=== PATIENT | female | born 1990 | race Caucasian/White ===

== ENCOUNTER 2016-07-08 07:58 | Emergency (ER) | payer OTHER ==
[~2016-07-08 07:58] MED LIST: ACET500C; ACET50TA PO; BACT800T; CEFT500T; DOCU10CA PO; FERR325T; IBUP600T26 PO; IBUP80TA PO; MOTR200T4; NORCOTAB PO; PRENCHW PO; [UNRECOGNIZED DRUG - REMARK]
--- NOTE | 2016-07-08 08:53 | REP ---
Clinical: Trauma. Comparison: Report dated 08/11/2015. Technique: AP, lateral, bilateral oblique and sunrise views of the left knee. Findings: Subchondral heterogeneity and subtle mottled appearance to the femoral condyles as well as subtle increase sclerosis to the tibial plateau suggests chronic changes related to continuous micro trauma. No acute fracture or dislocation. Small effusion cannot be excluded. Impression: Mild chronic-appearing degenerative changes. Possible small effusion. No acute fracture or dislocation. Signed by Lalit Nieto MD 07/08/2016 08:45 A
--- NOTE | 2016-07-08 09:10 | EDDOCDS ---
Physician Documentation [facility] Name: Alma Delia Alejandro Age: 25 yrs Sex: Female : 1990 Arrival Date: 07/08/2016 Time: 07:58 Bed I3 / M3 Private MD: Disposition: 07/08/16 08:55 Discharged to Home/Self Care. Impression: Pain in left knee. - Condition is Stable. - Discharge Instructions: Knee Bracing, Knee Pain. - Prescriptions for Diclofenac Sodium 75 mg Oral Tablet, Delayed Release (E.C.) - take 1 tablet by ORAL route 2 times per day; 30 tablet. Tramadol 50 mg Oral Tablet - take 1 tablet by ORAL route 4 times per day As needed MDD: 4 tabs; 20 tablet. - Medication Reconciliation, Local Pharmacy Hours form. - Follow up: Private Physician; When: Call to arrange an appointment; Reason: Further diagnostic work-up, Recheck today's complaints, Continuance of care. - Problem is an acute exacerbation. - Symptoms are unchanged. Historical: - Allergies: no known allergies; - Home Meds: 1. Viibryd 20 mg oral tab once daily - PMHx: Anxiety; Depression; - PSHx: ; Adenoidectomy; Tonsillectomy; Tubal ligation; knee surgery left X 5; - Social history: Smoking status: Patient uses tobacco products, current some day smoker. No barriers to communication noted, The patient speaks fluent Irish, Speaks appropriately for age. - Family history: Not pertinent. - : The pt / caregiver states he / she is not on anticoagulants. Home medication list is obtained from the patient. - Exposure Risk Screening:: None identified. 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 4 in. (162.56 cm) (R); Pain 7/10; 08:05 Body Mass Index 26.61 (70.31 kg, 162.56 cm) mlb1 MDM: 08:20 Knee, Complete Ordered. EDMS 08:22 Financial registration complete. mm15 08:27 [facility] Payment Agreement was scanned into Moment[employer] and attached to record. mm15 08:55 Knee Immobilizer ordered. btw 08:55 Crutches ordered. btw Signatures: Dispatcher MedHost Juan M Hardwick, RN Rob Ross RN RN mlb1 Dougie Perez PA PA btw Chelsey Mckenzie mm15 The chart was reviewed and I authenticate all verbal orders and agree with the evaluation and treatment provided.Attachments: 08:27 [facility] Payment Agreement mm15 MTDD
--- NOTE | 2016-07-08 09:10 | EDDOCDS ---
Nurse's Notes [facility] Name: Alma Delia Alejandro Age: 25 yrs Sex: Female : 1990 Arrival Date: 07/08/2016 Time: 07:58 Bed I3 / M3 Private MD: Diagnosis: Pain in left knee Presentation: 07/08 08:02 Presenting complaint: Patient states: Twisted left knee walking down steps yesterday. mlb1 Adult Sepsis Screening: The patient does not have new or worsening altered mentation. Patient's respiratory rate is less than 22. Systolic blood pressure is greater than 100. Patient has a qSOFA score of 0- Negative Sepsis Screen. Suicide/Homicide risk assessment- the patient denies having any suicidal and/or homicidal ideations and does not present with any other emotional, behavioral or mental health complaints. Status: Patient is not a electronic sales and service technician or dependent. Transition of care: patient was not received from another setting of care. 08:02 Acuity: KINA Level 4 mlb1 08:02 Method Of Arrival: Walkin/Carried/Asstd mlb1 Triage Assessment: 08:04 General: Appears in no apparent distress, Behavior is appropriate for age, cooperative. mlb1 Pain: Location: medial aspect of left knee Pain currently is 7 out of 10 on a pain scale. HIV screening NA for this visit Offered previously. 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 Viibryd 20 mg oral tab once daily - PMHx: Anxiety; Depression; - PSHx: ; Adenoidectomy; Tonsillectomy; Tubal ligation; knee surgery left X 5; - Social history: Smoking status: Patient uses tobacco products, current some day smoker. No barriers to communication noted, The patient speaks fluent Danish, Speaks appropriately for age. - Family history: Not pertinent. - : The pt / caregiver states he / she is not on anticoagulants. Home medication list is obtained from the patient. - Exposure Risk Screening:: None identified. Screenin:43 Screening information is obtained from the patient. Fall risk: No risks identified. dy Assistance ADL's: requires no assistance with activities of daily living. Abuse/DV Screen: The patient / caregiver reports he/she is: not in a situation that causes fear, pain or injury. Nutritional screening: No deficits noted. Advance Directives: There is no active DNR order. home support is adequate. Assessment: 08:41 General: Appears uncomfortable, Behavior is appropriate for age, cooperative. Pain: dy Location: medial aspect of left knee Pain currently is 7 out of 10 on a pain scale. Neurological: No deficits noted. Respiratory: Airway is patent Respiratory effort is even, unlabored. Derm: Skin is pink, warm & dry. 09:07 General: Appears in no apparent distress, Behavior is appropriate for age, cooperative. dy Pain: Location: medial aspect of left knee Pain currently is 6 out of 10 on a pain scale. Vital Signs: 08:05 BP 134 / 90; Pulse 105; Resp 16; Temp 97.9(TE); Pulse Ox 100% on R/A; Weight 70.31 kg mlb1 (R); Height 5 ft. 4 in. (162.56 cm) (R); Pain 7/10; 08:05 Body Mass Index 26.61 (70.31 kg, 162.56 cm) [facility] Vitals: 08:05 Log In Time: July 08, 2016 at 08:00. mlb1 ED Course: 07:59 Patient visited by Nadir Andersen. jp5 07:59 Patient moved to Waiting jp5 08:02 Patient visited by Rob Stapleton, RN. mlb1 08:02 Triage Initiated mlb1 08:05 Patient visited by Rob Stapleton, RN. mlb1 08:05 Patient moved to I3 / M3 mlb1 08:08 Dougie Perez PA is PSYCHIATRICP. btw 08:08 Massimo Mckinney MD is Attending Physician. btw 08:08 Patient visited by Dougie Perez PA. btw 08:27 [facility] Payment Agreement was scanned into Signal [employer]s and attached to record. mm15 08:43 Patient visited by Juan M Curry RN. dy 08:43 The patient / caregiver is instructed regarding the plan of care and ED course. Patient dy has correct armband on for positive identification. 08:57 Knee, Complete Returned. EDMS 09:05 Patient visited by Ousmane Roland PCA. jlf 09:05 Crutch training done. Knee immobilizer applied on left knee. Patient with positive dy distal sensation and brisk distal capillary refill after application. 09:07 No IV's were initiated during this patient's visit. No procedures done that require dy assistance. CMS intact distal to knee immobilizer. Order Results: Radiology Order: Knee, Complete Test: Knee, Complete REASON FOR EXAMINATION: Trauma; Clinical: Trauma.; ; Comparison: Report dated 08/11/2015.; ; Technique: AP, lateral, bilateral oblique and sunrise views of the left knee.; ; Findings: Subchondral heterogeneity and subtle mottled appearance to the femoral; condyles as well as subtle increase sclerosis to the tibial plateau suggests; chronic changes related to continuous micro trauma. No acute fracture or; dislocation. Small effusion cannot be excluded.; ; Impression:; Mild chronic-appearing degenerative changes.; Possible small effusion.; No acute fracture or dislocation.; ; ; ; Signed by; Lalit Nieto MD 07/08/2016 08:45 A; Outcome: 08:55 Discharge ordered by Provider. btw 09:09 Discharge Assessment: patient administered narcotics - no. The following High Risk dy Discharge criteria are identified: None. Discharged to home ambulatory. Condition: good. Discharge instructions given to patient, Instructed on discharge instructions, follow up and referral plans. medication usage, no driving heavy equipment, Rest, Ice, Compression and Elevation. crutch walking, no drinking with medication, Demonstrated understanding of instructions, crutch walking, medications, Pt was receptive of discharge instructions/ teaching. Prescriptions given X 2. No special radiology studies were completed. Property sent home with patient. 09:09 Patient left the ED. dy Signatures: Dispatcher MedHost EDJuan M Alberts RN RN dy Barney, Michael B, RN RN mlb1 Dougie Perez PA PA btw Chelsey Mckenzie mm15 Ousmane Roland, ALICIA CUT OFF SAW SET UP OPERATOR jlf Nadir Andersen jp5 Corrections: (The following items were deleted from the chart) 09:09 09:05 Crutch training done. Knee immobilizer applied on left knee. Patient with dy positive distal sensation and brisk distal capillary refill after application. jlf MTDD
--- NOTE | 2016-07-10 10:11 | EDDOCDS ---
Physician Documentation [facility] Name: Alma Delia Alejandro Age: 25 yrs Sex: Female : 1990 Arrival Date: 07/08/2016 Time: 07:58 Bed I3 / M3 Private MD: Disposition: 07/08/16 08:55 Discharged to Home/Self Care. Impression: Pain in left knee. - Condition is Stable. - Discharge Instructions: Knee Bracing, Knee Pain. - Prescriptions for Diclofenac Sodium 75 mg Oral Tablet, Delayed Release (E.C.) - take 1 tablet by ORAL route 2 times per day; 30 tablet. Tramadol 50 mg Oral Tablet - take 1 tablet by ORAL route 4 times per day As needed MDD: 4 tabs; 20 tablet. - Medication Reconciliation, Local Pharmacy Hours form. - Follow up: Private Physician; When: Call to arrange an appointment; Reason: Further diagnostic work-up, Recheck today's complaints, Continuance of care. - Problem is an acute exacerbation. - Symptoms are unchanged. Historical: - Allergies: no known allergies; - Home Meds: 1. Viibryd 20 mg oral tab once daily - PMHx: Anxiety; Depression; - PSHx: ; Adenoidectomy; Tonsillectomy; Tubal ligation; knee surgery left X 5; - Social history: Smoking status: Patient uses tobacco products, current some day smoker. No barriers to communication noted, The patient speaks fluent Irish, Speaks appropriately for age. - Family history: Not pertinent. - : The pt / caregiver states he / she is not on anticoagulants. Home medication list is obtained from the patient. - Exposure Risk Screening:: None identified. 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 4 in. (162.56 cm) (R); Pain 7/10; 08:05 Body Mass Index 26.61 (70.31 kg, 162.56 cm) mlb1 MDM: 08:20 Knee, Complete Ordered. EDMS 08:22 Financial registration complete. mm15 08: [facility] Payment Agreement was scanned into [employer] and attached to record. mm15 08:55 Knee Immobilizer ordered. btw 08:55 Crutches ordered. btw 07/09 10:23 T-Sheet-- Draft Copy was scanned into Sunshine and attached to record. gb Signatures: Dispatcher MedHost EDJosette Frausto, Reg Reg gb Juan M Curry RN RN dy Barney, Michael B RN RN mlb1 Dougie Perez PA PA btw Chelsey Mckenzie mm15 The chart was reviewed and I authenticate all verbal orders and agree with the evaluation and treatment provided.Attachments: 07/08 08: [facility] Payment Agreement mm15 07/09 10:23 T-Sheet-- Draft Copy gb Chart Complete MTDD
--- NOTE | 2016-07-10 10:11 | EDDOCDS ---
Physician Documentation [facility] Name: Alma Delia Alejandro Age: 25 yrs Sex: Female : 1990 Arrival Date: 07/08/2016 Time: 07:58 Bed I3 / M3 Private MD: Disposition: 07/08/16 08:55 Discharged to Home/Self Care. Impression: Pain in left knee. - Condition is Stable. - Discharge Instructions: Knee Bracing, Knee Pain. - Prescriptions for Diclofenac Sodium 75 mg Oral Tablet, Delayed Release (E.C.) - take 1 tablet by ORAL route 2 times per day; 30 tablet. Tramadol 50 mg Oral Tablet - take 1 tablet by ORAL route 4 times per day As needed MDD: 4 tabs; 20 tablet. - Medication Reconciliation, Local Pharmacy Hours form. - Follow up: Private Physician; When: Call to arrange an appointment; Reason: Further diagnostic work-up, Recheck today's complaints, Continuance of care. - Problem is an acute exacerbation. - Symptoms are unchanged. Historical: - Allergies: no known allergies; - Home Meds: 1. Viibryd 20 mg oral tab once daily - PMHx: Anxiety; Depression; - PSHx: ; Adenoidectomy; Tonsillectomy; Tubal ligation; knee surgery left X 5; - Social history: Smoking status: Patient uses tobacco products, current some day smoker. No barriers to communication noted, The patient speaks fluent Croatian, Speaks appropriately for age. - Family history: Not pertinent. - : The pt / caregiver states he / she is not on anticoagulants. Home medication list is obtained from the patient. - Exposure Risk Screening:: None identified. 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 4 in. (162.56 cm) (R); Pain 7/10; 08:05 Body Mass Index 26.61 (70.31 kg, 162.56 cm) mlb1 MDM: 08:20 Knee, Complete Ordered. EDMS 08:22 Financial registration complete. mm15 08: [facility] Payment Agreement was scanned into [employer] and attached to record. mm15 08:55 Knee Immobilizer ordered. btw 08:55 Crutches ordered. btw 07/09 10:23 T-Sheet-- Draft Copy was scanned into StyleQ and attached to record. gb Signatures: Dispatcher MedHost EDJosette Frausto, Reg Reg gb Juan M Curry RN RN dy Barney, Michael B RN RN mlb1 Dougie Perez PA PA btw Chelsey Mckenzie mm15 The chart was reviewed and I authenticate all verbal orders and agree with the evaluation and treatment provided.Attachments: 07/08 08: [facility] Payment Agreement mm15 07/09 10:23 T-Sheet-- Draft Copy gb Chart Complete MTDD
--- NOTE | 2016-07-10 10:11 | EDDOCDS ---
Nurse's Notes [facility] Name: Alma Delia Alejandro Age: 25 yrs Sex: Female : 1990 Arrival Date: 07/08/2016 Time: 07:58 Bed I3 / M3 Private MD: Diagnosis: Pain in left knee Presentation: 07/08 08:02 Presenting complaint: Patient states: Twisted left knee walking down steps yesterday. mlb1 Adult Sepsis Screening: The patient does not have new or worsening altered mentation. Patient's respiratory rate is less than 22. Systolic blood pressure is greater than 100. Patient has a qSOFA score of 0- Negative Sepsis Screen. Suicide/Homicide risk assessment- the patient denies having any suicidal and/or homicidal ideations and does not present with any other emotional, behavioral or mental health complaints. 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 Transition of care: patient was not received from another setting of care. 08:02 Acuity: KINA Level 4 mlb1 08:02 Method Of Arrival: Walkin/Carried/Asstd mlb1 Triage Assessment: 08:04 General: Appears in no apparent distress, Behavior is appropriate for age, cooperative. mlb1 Pain: Location: medial aspect of left knee Pain currently is 7 out of 10 on a pain scale. HIV screening NA for this visit Offered previously. 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 Viibryd 20 mg oral tab once daily - PMHx: Anxiety; Depression; - PSHx: ; Adenoidectomy; Tonsillectomy; Tubal ligation; knee surgery left X 5; - Social history: Smoking status: Patient uses tobacco products, current some day smoker. No barriers to communication noted, The patient speaks fluent Hebrew, Speaks appropriately for age. - Family history: Not pertinent. - : The pt / caregiver states he / she is not on anticoagulants. Home medication list is obtained from the patient. - Exposure Risk Screening:: None identified. Screenin:43 Screening information is obtained from the patient. Fall risk: No risks identified. dy Assistance ADL's: requires no assistance with activities of daily living. Abuse/DV Screen: The patient / caregiver reports he/she is: not in a situation that causes fear, pain or injury. Nutritional screening: No deficits noted. Advance Directives: There is no active DNR order. home support is adequate. Assessment: 08:41 General: Appears uncomfortable, Behavior is appropriate for age, cooperative. Pain: dy Location: medial aspect of left knee Pain currently is 7 out of 10 on a pain scale. Neurological: No deficits noted. Respiratory: Airway is patent Respiratory effort is even, unlabored. Derm: Skin is pink, warm & dry. 09:07 General: Appears in no apparent distress, Behavior is appropriate for age, cooperative. dy Pain: Location: medial aspect of left knee Pain currently is 6 out of 10 on a pain scale. Vital Signs: 08:05 BP 134 / 90; Pulse 105; Resp 16; Temp 97.9(TE); Pulse Ox 100% on R/A; Weight 70.31 kg mlb1 (R); Height 5 ft. 4 in. (162.56 cm) (R); Pain 7/10; 08:05 Body Mass Index 26.61 (70.31 kg, 162.56 cm) [facility] Vitals: 08:05 Log In Time: July 08, 2016 at 08:00. mlb1 ED Course: 07:59 Patient visited by Nadir Andersen. jp5 07:59 Patient moved to Waiting jp5 08:02 Patient visited by Rob Stapleton, RN. mlb1 08:02 Triage Initiated mlb1 08:05 Patient visited by Rob Stapleton, RN. mlb1 08:05 Patient moved to I3 / M3 mlb1 08:08 [facility] Perez [facility]. btw 08:08 Massimo Mckinney MD is Attending Physician. btw 08:08 Patient visited by Dougie Perez PA. btw 08:27 [facility] Payment Agreement was scanned into Duolingo and attached to record. mm15 08:43 Patient visited by Juan M Curry RN. dy 08:43 The patient / caregiver is instructed regarding the plan of care and ED course. Patient dy has correct armband on for positive identification. 08:57 Knee, Complete Returned. EDMS 09:05 Patient visited by Ousmane Roland PCA. jlf 09:05 Crutch training done. Knee immobilizer applied on left knee. Patient with positive dy distal sensation and brisk distal capillary refill after application. 09:07 No IV's were initiated during this patient's visit. No procedures done that require dy assistance. CMS intact distal to knee immobilizer. 07/09 10:23 T-Sheet-- Draft Copy was scanned into Duolingo and attached to record. gb Order Results: Radiology Order: Knee, Complete Test: Knee, Complete REASON FOR EXAMINATION: Trauma; Clinical: Trauma.; ; Comparison: Report dated 08/11/2015.; ; Technique: AP, lateral, bilateral oblique and sunrise views of the left knee.; ; Findings: Subchondral heterogeneity and subtle mottled appearance to the femoral; condyles as well as subtle increase sclerosis to the tibial plateau suggests; chronic changes related to continuous micro trauma. No acute fracture or; dislocation. Small effusion cannot be excluded.; ; Impression:; Mild chronic-appearing degenerative changes.; Possible small effusion.; No acute fracture or dislocation.; ; ; ; Signed by; Lalit Nieto MD 07/08/2016 08:45 A; Outcome: 07/08 08:55 Discharge ordered by Provider. btw 09:09 Discharge Assessment: patient administered narcotics - no. The following High Risk dy Discharge criteria are identified: None. Discharged to home ambulatory. Condition: good. Discharge instructions given to patient, Instructed on discharge instructions, follow up and referral plans. medication usage, no driving heavy equipment, Rest, Ice, Compression and Elevation. crutch walking, no drinking with medication, Demonstrated understanding of instructions, crutch walking, medications, Pt was receptive of discharge instructions/ teaching. Prescriptions given X 2. No special radiology studies were completed. Property sent home with patient. 09:09 Patient left the ED. dy Signatures: Dispatcher MedHost EDMS Josette Chamorro, Reg Reg Juan M Portillo RN Rob Ross RN RN mlb1 Dougie Perez PA PA btw Chelsey Mckenzie mm15 Ousmane Roland PCA PCA jlf Nadir Andersen jp5 Corrections: (The following items were deleted from the chart) 09:09 09:05 Crutch training done. Knee immobilizer applied on left knee. Patient with dy positive distal sensation and brisk distal capillary refill after application. danisf Chart Complete MTDD
== END 2016-07-08 09:09 | disposition home or self-care (01) ==
LOC: M ED 07:58
DX: S83.412A Sprain of medial collateral ligament of left knee, initial encounter (principal); X58.XXXA Exposure to other specified factors, initial encounter; Y92.019 Unspecified place in single-family (private) house as the place of occurrence of the external cause; Y93.01 Activity, walking, marching and hiking; Y99.8 Other external cause status; F41.9 Anxiety disorder, unspecified; F32.9 Major depressive disorder, single episode, unspecified; Z90.89 Acquired absence of other organs; Z79.899 Other long term (current) drug therapy

== ENCOUNTER → 2016-08-15 | Outpatient (REF) | payer OTHER | LOC: M LAB REF 16:18 | PROVIDERS: ATTEND Physician Assistant | DX: J11.1 Influenza due to unidentified influenza virus with other respiratory manifestations (principal) ==

== ENCOUNTER 2016-10-02 12:34 | Emergency (ER) | payer OTHER ==
[~2016-10-02] VITALS: Ht 162.6 cm; Wt 65.8 kg
[2016-10-02] MEDS ORDERED: TYLE325T5 PO (12:48)
[2016-10-02] MEDS ORDERED: diphenhydrAMINE INJ 50MG/ML VIAL (J1200) IV ONE (14:15)
[2016-10-02] MEDS ORDERED: METOCLOPRAMIDE INJ 10MG/2ML VIAL (J2765) IV ONE (14:15)
[2016-10-02 15:11] LABS: INR 0.89
[2016-10-02 15:25] LABS: CONTROL LINE HCG INT CTR LINE PRESENT
[2016-10-02 15:29] LABS: MEAN CORPUSCULAR HEMOGLOBIN 31.8 pg (27.0-33.0); MEAN CORPUSCULAR HGB CONC 33.5 g/dl (32.0-36.5); MEAN CORPUSCULAR VOLUME 94.9 fl (80.0-96.0); RED CELL DISTRIBUTION WIDTH 12.1 % (11.5-14.5); WHITE BLOOD COUNT 6.6 K/mm3 (4.0-10.0)
[2016-10-02 15:31] LABS: ANION GAP 9 MEQ/L (8-16); BLOOD UREA NITROGEN 12 MG/DL (7-18); CARBON DIOXIDE LEVEL 27 MEQ/L (21-32); CHLORIDE LEVEL 103 MEQ/L (98-107); CREATININE FOR GFR 0.74 MG/DL (0.55-1.02); GLOMERULAR FILTRATION RATE > 60.0 (>60); GLUCOSE, FASTING 91 MG/DL (70-105); POTASSIUM SERUM 3.9 MEQ/L (3.5-5.1); SODIUM LEVEL 139 MEQ/L (136-145)
--- NOTE | 2016-10-02 15:50 | REP ---
Clinical: Headache . Comparison: 03/12/2016 . Findings: The ventricles, sulci, and cisterns are normal in position and appearance. Ross-white differentiation is maintained. No acute intracranial hemorrhage, mass/mass effect, pathology or trauma/injury. No evidence for acute infarction. No extra-axial fluid collection. Calvarium is intact. Partial opacification to the visualized ethmoid and sphenoid sinuses suggests sinusitis. The mastoid air cells are well-aerated and clear. Impression: Sinusitis. Otherwise, normal noncontrast head CT. No evidence for acute intracranial pathology or trauma/injury. Signed by Lalit Nieto MD 10/02/2016 03:41 P
[2016-10-02] MEDS ORDERED: NS 1,000 ML IV ONE (16:00)
[2016-10-02] MEDS ORDERED: KETOROLAC 30 MG/ML VIAL (J1885) IV ONE (16:00)
[2016-10-02] MEDS ORDERED: REGL10TA6 PO (17:31)
[2016-10-02 17:40] VITALS: BP 135/74
== END 2016-10-02 17:44 | disposition home or self-care (01) ==
LOC: M ED 14:21
DX: G43.909 Migraine, unspecified, not intractable, without status migrainosus (principal); J01.90 Acute sinusitis, unspecified; Z79.899 Other long term (current) drug therapy
CPT/HCPCS: 70450; 80048; 84703; 85027; 85610; 96374; 96375; 99283; J1200; J1885; J2765

== ENCOUNTER 2016-10-23 22:04 | Emergency (ER) | payer OTHER ==
[~2016-10-23] VITALS: Ht 162.6 cm; Wt 70.2 kg
[~2016-10-23 22:04] MED LIST changes: +REGL10TA6 PO; +TYLE325T5 PO
[2016-10-23] MEDS ORDERED: OXYC1TAB23 PO (22:11)
[2016-10-23] MEDS ORDERED: NS 1,000 ML IV ONE (23:30)
[2016-10-23] MEDS ORDERED: KETOROLAC 30 MG/ML VIAL (J1885) IV ONE (23:30)
[2016-10-24 00:02] LABS: MEAN CORPUSCULAR HEMOGLOBIN 32.6 pg (27.0-33.0); MEAN CORPUSCULAR HGB CONC 34.9 g/dl (32.0-36.5); MEAN CORPUSCULAR VOLUME 93.3 fl (80.0-96.0); PLATELET COUNT, AUTOMATED 265 k/mm3 (150-450); RED CELL DISTRIBUTION WIDTH 11.9 % (11.5-14.5)
[2016-10-24 00:23] LABS: ANION GAP 6 MEQ/L (8-16); BLOOD UREA NITROGEN 8 MG/DL (7-18); CALCIUM LEVEL 8.8 MG/DL (8.5-10.1); CARBON DIOXIDE LEVEL 26 MEQ/L (21-32); CHLORIDE LEVEL 105 MEQ/L (98-107); GLOMERULAR FILTRATION RATE > 60.0 (>60); GLUCOSE, FASTING 95 MG/DL (70-105); POTASSIUM SERUM 4.1 MEQ/L (3.5-5.1); SODIUM LEVEL 137 MEQ/L (136-145)
--- NOTE | 2016-10-24 00:41 | REP ---
Clinical: 03/04/2012. Comparison: Fever. Technique: PA and lateral. Findings: The mediastinum and cardiac silhouette are normal. The lung sharp are clear and without acute consolidation, effusion, or pneumothorax. Possible trace middle lobe atelectasis. The skeletal structures are intact and normal. Impression: 1. No Focal consolidation. Questionable trace RML atelectasis. Signed by Lalit Nieto MD 10/24/2016 12:32 A
[2016-10-24 00:43] LABS: EOSINOPHILS 1 % (0-5)
[2016-10-24 01:02] VITALS: BP 108/67
== END 2016-10-24 01:04 | disposition home or self-care (01) ==
LOC: M ED 22:53
DX: R53.83 Other fatigue (principal); R53.81 Other malaise; Z98.890 Other specified postprocedural states
CPT/HCPCS: 71020; 80048; 81001; 83605; 85025; 87040; 96361; 96374; 99283; J1885

== ENCOUNTER 2016-12-02 12:48 | Emergency (ER) | payer OTHER ==
[~2016-12-02] VITALS: Ht 162.6 cm; Wt 67.4 kg
[~2016-12-02 12:48] MED LIST changes: -ATIV1TAB10 PO; -BUPR300T34 PO; -CEFD1CAP8 PO; -IBUP-1022 PO; -ONDA4TAB6 PO; -OXYC1TAB15 PO; -PYRI1TAB5 PO
[2016-12-02] MEDS ORDERED: BUPR300T34 PO (13:01)
[2016-12-02] MEDS ORDERED: NS 1,000 ML IV ONE (13:45)
[2016-12-02] MEDS ORDERED: cefTRIAXone SOD 1 GM in D5W MINI-BAG PLUS 50 ML IV ONE (13:45)
[2016-12-02] MEDS ORDERED: MORPHINE 4 MG/ML 1ML SYRINGE IV ONE ×2 (13:45→15:00)
[2016-12-02] MEDS ORDERED: ONDANSETRON 4MG/2ML VIAL (J2405) IV ONE (13:45)
[2016-12-02 13:51] LABS: BASO % 0.4 % (0.0-1.0); EOS # 0.3 K/mm3 (0.0-0.50); EOS % 3.1 % (0.0-3.0); LARGE UNSTAINED CELL # 0.1 K/mm3 (0.0-0.4); LARGE UNSTAINED CELL % 1.1 % (0.0-4.0); LYMPH # 2.9 K/mm3 (1.5-6.5); LYMPH % 27.8 % (24.0-44.0); MEAN CORPUSCULAR HEMOGLOBIN 31.1 pg (27.0-33.0); MEAN CORPUSCULAR HGB CONC 32.8 g/dl (32.0-36.5); MEAN CORPUSCULAR VOLUME 94.7 fl (80.0-96.0); MONO # 0.5 K/mm3 (0.0-0.8); MONO % 4.5 % (0.0-5.0); NEUTROPHILS # 6.4 K/mm3 (1.8-7.7); NEUTROPHILS % 63.1 % (36.0-66.0); PLATELET COUNT, AUTOMATED 319 k/mm3 (150-450); RED CELL DISTRIBUTION WIDTH 12.5 % (11.5-14.5); WHITE BLOOD COUNT 10.2 K/mm3 (4.0-10.0)
[2016-12-02 14:05] LABS: ALBUMIN 4.2 GM/DL (3.2-5.2); ALKALINE PHOSPHATASE 69 U/L (45-117); ALT/SGPT 28 U/L (12-78); ANION GAP 7 MEQ/L (8-16); AST/SGOT 18 U/L (15-37); BILIRUBIN,DIRECT 0.1 MG/DL (0.0-0.2); BILIRUBIN,TOTAL 0.5 MG/DL (0.2-1.0); BLOOD UREA NITROGEN 12 MG/DL (7-18); CALCIUM LEVEL 8.9 MG/DL (8.5-10.1); CARBON DIOXIDE LEVEL 24 MEQ/L (21-32); CHLORIDE LEVEL 105 MEQ/L (98-107); CREATININE FOR GFR 0.78 MG/DL (0.55-1.02); GLOMERULAR FILTRATION RATE > 60.0 (>60); GLUCOSE, FASTING 86 MG/DL (70-105); SODIUM LEVEL 136 MEQ/L (136-145); TOTAL PROTEIN 7.7 GM/DL (6.4-8.2)
[2016-12-02] MEDS ORDERED: ONDA4TAB6 PO (15:58)
[2016-12-02] MEDS ORDERED: PYRI1TAB5 PO (15:58)
[2016-12-02] MEDS ORDERED: IBUP-1022 PO (15:58)
[2016-12-02] MEDS ORDERED: CEFD1CAP8 PO (15:58)
[2016-12-02 16:08] VITALS: BP 120/73
[2016-12-02] MEDS ORDERED: NORCO, ANEXSIA 5/325MG TABLET (HYDROcodone/ACETAMINOPHEN) PO ONE (16:15)
[2016-12-02] MEDS ORDERED: NORCO 5/325MG TABLET (BULK FOR ED) PO ONE (16:30)
--- NOTE | 2016-12-02 20:08 | REP ---
RENAL ULTRASOUND: Real-time sonographic evaluation of kidneys is performed and demonstrates both kidneys to be normal in size and echotexture. Right kidney measuring 9.6 x 4.6 x 3.9 cm and the left kidney 10.2 x 4.9 x 5.5 cm. There is no hydronephrosis of nephrolithiases identified bilaterally. Urinary bladder is not distended as it was just emptied. IMPRESSION: Negative Renal ultrasound. Signed by Gerardo Ross MD 12/03/2016 01:05 P
[2017-03-08] MEDS ORDERED: ATIV1TAB10 PO (09:09)
[2017-03-11] MEDS ORDERED: OXYC1TAB15 PO (14:04)
== END 2016-12-02 16:32 | disposition home or self-care (01) ==
LOC: M ED 12:48
DX: N10 Acute pyelonephritis (principal); G43.909 Migraine, unspecified, not intractable, without status migrainosus; F41.9 Anxiety disorder, unspecified; F17.200 Nicotine dependence, unspecified, uncomplicated; Z79.899 Other long term (current) drug therapy
CPT/HCPCS: 76775; 80048; 80076; 81001; 81025; 83605; 85025; 87040; 87086; 96374; 96375; 96376; 99284; J0696; J2405

== ENCOUNTER → 2016-12-02 | Outpatient (REF) | payer OTHER ==
[~2016-12-02] MED LIST changes: +ATIV1TAB10 PO; +BUPR300T34 PO; +CEFD1CAP8 PO; +IBUP-1022 PO; +ONDA4TAB6 PO; +OXYC1TAB15 PO; +OXYC1TAB23 PO; +PYRI1TAB5 PO
== END ==
LOC: M LAB REF 09:24 → EEVIPCON 09:24
PROVIDERS: ATTEND Physician Assistant
DX: R10.11 Right upper quadrant pain (principal)

== ENCOUNTER → 2017-02-12 | Outpatient (REF) | payer OTHER ==
[~2017-02-12] MED LIST changes: +ATIV1TAB10 PO; +BUPR300T34 PO; +CEFD1CAP8 PO; +IBUP-1022 PO; +ONDA4TAB6 PO; +OXYC1TAB15 PO; +PYRI1TAB5 PO
[2017-02-12 18:26] LABS: HCG, SERUM QUANTITATIVE 1271 MIU/ML
[2017-02-12 20:13] LABS: MEAN CORPUSCULAR HEMOGLOBIN 31.4 pg (27.0-33.0); MEAN CORPUSCULAR HGB CONC 32.9 g/dl (32.0-36.5); MEAN CORPUSCULAR VOLUME 95.5 fl (80.0-96.0); RED CELL DISTRIBUTION WIDTH 12.4 % (11.5-14.5); WHITE BLOOD COUNT 8.5 10^3/uL (4.0-10.0)
[2017-02-13 11:01] LABS: HBsAg Prenatal NEGATIVE (NEGATIVE)
== END ==
LOC: M LAB REF 16:47
PROVIDERS: ATTEND Obstetrics & Gynecology
DX: Z32.01 Encounter for pregnancy test, result positive (principal)

== ENCOUNTER → 2017-02-14 | Outpatient (REF) | payer OTHER | LOC: M LAB REF 17:42 | PROVIDERS: ATTEND Obstetrics & Gynecology | DX: O36.80X0 Pregnancy with inconclusive fetal viability, not applicable or unspecified (principal) ==

== ENCOUNTER → 2017-06-05 | Outpatient (REF) | payer OTHER | LOC: M LAB REF 12:17 | DX: J06.9 Acute upper respiratory infection, unspecified (principal) ==

== ENCOUNTER → 2017-09-11 | Outpatient (CLI) | payer OTHER | LOC: M RAD 09:24 | DX: M79.604 Pain in right leg (principal) | CPT/HCPCS: 93971 ==

== ENCOUNTER → 2017-12-23 | Outpatient (REF) | payer OTHER ==
[2017-12-23 19:03] LABS: C REACTIVE PROTEIN QUANTITATIV 5.81 MG/DL (0.00-0.30)
== END ==
LOC: M LAB REF 18:23
DX: R50.9 Fever, unspecified (principal)

== ENCOUNTER → 2017-12-24 | Outpatient (CLI) | payer OTHER | LOC: M WUC 09:41 | DX: R50.9 Fever, unspecified (principal) | CPT/HCPCS: 71046 ==

== ENCOUNTER 2021-04-06 08:33 | Emergency (ER) | payer OTHER ==
[~2021-04-06] VITALS: Ht 162.6 cm; Wt 58.7 kg
[~2021-04-06 08:33] MED LIST changes: -ACET50TA PO; -BUPR300T34 PO; +BUPR300T92 PO; -CEFD1CAP8 PO; +CEFD300C41 PO; +MAPA500T17 PO; -OXYC1TAB15 PO; +OXYC7.5T3 PO
[2021-04-06] MEDS ORDERED: VYVA70CA3 (09:00)
[2021-04-06 11:41] VITALS: BP 136/97
== END 2021-04-06 11:59 | disposition home or self-care (01) ==
LOC: M ED 08:33
DX: U07.1 COVID-19 (principal); J02.9 Acute pharyngitis, unspecified; G43.909 Migraine, unspecified, not intractable, without status migrainosus; Z87.01 Personal history of pneumonia (recurrent); N10 Acute pyelonephritis; M87.9 Osteonecrosis, unspecified; Z79.899 Other long term (current) drug therapy

== ENCOUNTER 2022-10-03 10:26 | Emergency (ER) | payer OTHER ==
[~2022-10-03] VITALS: Ht 162.6 cm; Wt 55.9 kg
[~2022-10-03 10:26] MED LIST changes: +VYVA70CA3
[2022-10-03] MEDS ORDERED: ADDE1TAB14 PO (10:35)
[2022-10-03] MEDS ORDERED: NS 1,000 ML IV ONE (12:00)
[2022-10-03] MEDS ORDERED: KETOROLAC 30 MG/ML 1ML VIAL IV ONE (12:00)
[2022-10-03] MEDS ORDERED: ONDANSETRON 4MG 2ML VIAL IV ONE (12:00)
[2022-10-03 12:23] LABS: BASO % 0.5 % (0.0-1.0); EOS # 0.1 10^3/uL (0.0-0.5); EOS % 1.2 % (0.0-3.0); HEMATOCRIT 36.6 % (36.0-47.0); HEMOGLOBIN 12.3 g/dl (12.0-15.5); LYMPH # 2.3 10^3/uL (1.5-5.0); MEAN CORPUSCULAR HEMOGLOBIN 32.3 pg (27.0-33.0); MEAN CORPUSCULAR HGB CONC 33.6 g/dl (32.0-36.5); MEAN CORPUSCULAR VOLUME 96.1 fl (80.0-96.0); MONO # 0.6 10^3/uL (0.0-0.8); MONO % 6.6 % (2.0-8.0); NEUTROPHILS # 5.7 10^3/uL (1.5-8.5); NEUTROPHILS % 65.5 % (36.0-66.0); PLATELET COUNT, AUTOMATED 358 10^3/uL (150-450); RED BLOOD COUNT 3.81 10^6/uL (4.00-5.40); WHITE BLOOD COUNT 8.7 10^3/uL (4.0-10.0)
[2022-10-03] MEDS ORDERED: MORPHINE 4 MG/ML 1ML VIAL IV ONE (12:40)
[2022-10-03 12:44] LABS: LIPASE 29 U/L (12-53)
[2022-10-03 12:46] LABS: ALBUMIN 4.3 G/DL (3.2-5.2); ALKALINE PHOSPHATASE 65 U/L (46-116); ALT/SGPT 25 U/L (7.0-40); AST/SGOT 20 U/L (<34); BILIRUBIN,DIRECT 0.2 MG/DL (<0.4); BILIRUBIN,TOTAL 0.9 MG/DL (0.3-1.2); BLOOD UREA NITROGEN 11 MG/DL (9-23); CALCIUM LEVEL 9.2 MG/DL (8.5-10.1); CARBON DIOXIDE LEVEL 26 MMOL/L (20-31); CHLORIDE LEVEL 104 MMOL/L (98-107); CREATININE FOR GFR 0.82 MG/DL (0.55-1.30); GLOMERULAR FILTRATION RATE > 60.0 (>60); GLUCOSE, FASTING 78 MG/DL (60-100); POTASSIUM SERUM 4.2 MMOL/L (3.5-5.1); SODIUM LEVEL 136 MMOL/L (136-145); TOTAL PROTEIN 7.1 G/DL (5.7-8.2)
[2022-10-03] MEDS ORDERED: SULF1TAB23 PO (13:50)
[2022-10-03 14:06] VITALS: BP 117/80
== END 2022-10-03 14:07 | disposition home or self-care (01) ==
LOC: M ED 10:26
DX: N30.01 Acute cystitis with hematuria (principal); N20.0 Calculus of kidney; K59.00 Constipation, unspecified; F90.9 Attention-deficit hyperactivity disorder, unspecified type; G43.909 Migraine, unspecified, not intractable, without status migrainosus; F32.A Depression, unspecified; F41.9 Anxiety disorder, unspecified; Z79.899 Other long term (current) drug therapy; Z79.83 Long term (current) use of bisphosphonates
CPT/HCPCS: 74176; 80048; 80076; 81001; 83690; 85025; 87088; 87186; 96361; 96374; 96375; 99284; J1885; J2405

== ENCOUNTER 2023-07-30 14:34 | Emergency (ER) | payer OTHER ==
[~2023-07-30] VITALS: Ht 162.6 cm; Wt 56.7 kg
[~2023-07-30 14:34] MED LIST changes: +ADDE1TAB14 PO; +CEFD1CAP9 PO; -CEFD300C41 PO; +SULF1TAB23 PO
[2023-07-30 15:36] LABS: BASO % 0.3 % (0.0-1.0); EOS # 0.1 10^3/uL (0.0-0.5); HEMATOCRIT 39.6 % (36.0-47.0); HEMOGLOBIN 13.2 g/dl (12.0-15.5); LYMPH # 1.3 10^3/uL (1.5-5.0); LYMPH % 41.3 % (24.0-44.0); MEAN CORPUSCULAR HEMOGLOBIN 31.6 pg (27.0-33.0); MEAN CORPUSCULAR HGB CONC 33.3 g/dl (32.0-36.5); MEAN CORPUSCULAR VOLUME 94.7 fl (80.0-96.0); MONO # 0.3 10^3/uL (0.0-0.8); MONO % 11.1 % (2.0-8.0); NEUTROPHILS # 1.4 10^3/uL (1.5-8.5); NEUTROPHILS % 44.6 % (36.0-66.0); PLATELET COUNT, AUTOMATED 278 10^3/uL (150-450); RED BLOOD COUNT 4.18 10^6/uL (4.00-5.40); WHITE BLOOD COUNT 3.1 10^3/uL (4.0-10.0)
[2023-07-30 16:10] LABS: BLOOD UREA NITROGEN 5 MG/DL (9-23); CALCIUM LEVEL 9.1 MG/DL (8.5-10.1); CARBON DIOXIDE LEVEL 27 MMOL/L (20-31); CHLORIDE LEVEL 102 MMOL/L (98-107); CREATININE FOR GFR 0.65 MG/DL (0.55-1.30); GLOMERULAR FILTRATION RATE > 60.0 (>60); GLUCOSE, FASTING 128 MG/DL (60-100); POTASSIUM SERUM 3.9 MMOL/L (3.5-5.1); SODIUM LEVEL 135 MMOL/L (136-145)
[2023-07-30 16:12] LABS: HCG, SERUM QUALITATIVE NEGATIVE (NEGATIVE)
[2023-07-30 16:15] LABS: RSV AMPLIFICATION NEGATIVE (NEGATIVE)
[2023-07-30] MEDS: IBUPROFEN 800 MG TAB PO ONE (17:18)
[2023-07-30] MEDS ORDERED: NITR1CAP11 PO (19:26)
[2023-07-30] MEDS ORDERED: ONDA4TAB6 PO (19:26)
[2023-07-30 19:35] VITALS: BP 106/67; TEMP 98.6; O2SAT 97
== END 2023-07-30 19:37 | disposition home or self-care (01) ==
LOC: M ED 14:34
DX: N30.01 Acute cystitis with hematuria (principal); J10.1 Influenza due to other identified influenza virus with other respiratory manifestations; G43.909 Migraine, unspecified, not intractable, without status migrainosus; F90.9 Attention-deficit hyperactivity disorder, unspecified type; F41.9 Anxiety disorder, unspecified; F32.A Depression, unspecified; Z79.83 Long term (current) use of bisphosphonates; Z79.899 Other long term (current) drug therapy; Z79.2 Long term (current) use of antibiotics